=== PATIENT | female | born 1955 | race Hispanic/Latino ===

== ENCOUNTER 2017-03-04 14:37 | Emergency (ER) | payer SELFPAY ==
[2017-03-04 14:42] VITALS: TEMP 97.9; O2SAT 100
--- NOTE | 2017-03-04 15:22 | C.PDOC ---
History Of Present Illness 61 year old female with a history of schizophrenia was brought to the ED by EMS for evaluation of bizzare behavior. Patient was malingering and sitting naked on a front stoop. She denies any physical complaints, suicidal or homicidal ideations. Time Seen by Provider: 03/04/17 15:07 Chief Complaint (Nursing): Psychiatric Evaluation History Per: Patient, EMS History/Exam Limitations: no limitations Suicide/Self Injury Attempted (Context): None Involuntary Hold By: None Recent travel outside of the [place]: No Additional History Per: Prior Records Past Medical History Reviewed: Historical Data, Nursing Documentation, Vital Signs Vital Signs: Last Vital Signs Temp 97.9 F 03/04/17 14:38 Pulse 80 03/04/17 18:44 Resp 18 03/04/17 18:44 BP 105/68 03/04/17 18:44 Pulse Ox 100 03/04/17 22:02 Family History: States: Unknown Family Hx - Social History Hx Alcohol Use: (UNABLE TO OBTAIN) Hx Substance Use: (UNABLE TO OBTAIN) - Immunization History Hx Tetanus Toxoid Vaccination: (UNABLE TO OBTAIN) Review Of Systems Constitutional: Negative for: Fever, Chills Cardiovascular: Negative for: Chest Pain Respiratory: Negative for: Shortness of Breath Gastrointestinal: Negative for: Nausea, Vomiting, Abdominal Pain Physical Exam - Physical Exam Appears: Non-toxic, Other (Patient appears chronically mentally ill ) Skin: Warm, Dry Head: Atraumatic Eye(s): bilateral: Normal Inspection, PERRL, EOMI Oral Mucosa: Moist Neck: Supple Chest: Symmetrical, No Deformity Cardiovascular: Rhythm Regular Respiratory: Normal Breath Sounds, No Wheezing Gastrointestinal/Abdominal: Soft, No Tenderness, No Distention, No Guarding, No Rebound Neurological/Psych: Oriented x3 ED Course And Treatment - Laboratory Results Result Diagrams: 03/04/17 16:25 03/04/17 16:25 Lab Interpretation: Normal (tox/etoh neg) O2 Sat by Pulse Oximetry: 100 (room air ) Reevaluation Time: 18:25 Reassessment Condition: Improved - Physician Consult Information Outcome Of Conversation: [id number], [id number]: d/w Crisis, ok to d/c with f/u @ [facility]- where pt usually goes. No acute issues today Medical Decision Making Medical Decision Making: baseline schizophrenia Disposition Doctor Will See Patient In The: Office Counseled Patient/Family Regarding: Studies Performed, Diagnosis - Disposition Referrals: [facility] [Outside] [facility] [Outside] [facility] [Outside] [place] [facility] [Outside] [facility] [Non-Staff] - Disposition: HOME/ ROUTINE Disposition Time: 18:26 Condition: GOOD Additional Instructions: please follow-up at the [facility] psych services as usual Instructions: Schizophrenia (ED) Forms: ustyme (Haitian) - Clinical Impression Clinical Impression: Schizophrenia - Scribe Statement The provider has reviewed the documentation as recorded by the Scribe Aranza Crook All medical record entries made by the Scribe were at my direction and personally dictated by me. I have reviewed the chart and agree that the record accurately reflects my personal performance of the history, physical exam, medical decision making, and the department course for this patient. I have also personally directed, reviewed, and agree with the discharge instructions and disposition.
[2017-03-04 16:28] LABS: BASO % 0.3 % (0.0-2.0); EOS # 0.3 K/uL (0.0-0.7); EOS % 5.7 % (0.0-4.0); HEMOGLOBIN 12.1 g/dL (11.0-16.0); LYMPH % 32.7 % (20.0-40.0); MEAN CELL VOLUME 92.2 fL (81.0-99.0); MEAN CORPUSCULAR HEMOGLOBIN 30.8 pg (27.0-31.0); MEAN CORPUSCULAR HGB CONC 33.4 g/dL (33.0-37.0); MONO # 0.5 K/uL (0.0-0.8); MONO % 7.7 % (0.0-10.0); NEUT # 3.2 K/uL (1.8-7.0); NEUT % 53.6 % (50.0-75.0); RBC 3.95 Mil/uL (3.80-5.20)
[2017-03-04 16:35] LABS: ALBUMIN 3.2 g/dL (3.5-5.0)
[2017-03-04 16:38] LABS: GFR AFRICAN-AMERICAN > 60; GFR NON-AFRICAN AMERICAN > 60
[2017-03-04 16:39] LABS: ALB/GLOB RATIO 1.3 (1.0-2.1); ALT/SGPT 26 U/L (9-52); AST/SGOT 22 U/L (14-36); BLOOD UREA NITROGEN 11 mg/dL (7-17); CALCIUM 8.5 mg/dl (8.6-10.4)
[2017-03-04 16:59] LABS: SQUAMOUS EPITHIAL 3 /hpf (0-5); URINE BACTERIA OCC (<OCC); URINE BILIRUBIN NEGATIVE (NEGATIVE); URINE BLOOD 2+ (NEGATIVE); URINE CLARITY Hazy (Clear); URINE COLOR Yellow (YELLOW); URINE GLUCOSE (UA) NORMAL (Normal); URINE LEUKOCYTE ESTERASE 3+ Leu/uL (Negative); URINE NITRATE NEGATIVE (NEGATIVE); URINE PROTEIN NEGATIVE (NEGATIVE); URINE UROBILINOGEN NORMAL mg/dL (0.2-1.0)
[2017-03-04 17:14] LABS: BARBITURATES, UR NEGATIVE (NEGATIVE); BENZODIAZEPINES, UR NEGATIVE (NEGATIVE)
[2017-03-04 17:18] LABS: OPIATES, UR NEGATIVE (NEGATIVE); PHENCYCLIDINE, UR NEGATIVE (NEGATIVE)
[2017-03-04 18:45] VITALS: BP 105/68; PULSE 80; RESP 18
== END 2017-03-04 18:44 | disposition home or self-care (01) ==
LOC: EDBD 14:37 → C.ER 14:37
DX: F20.9 Schizophrenia, unspecified (principal)
CPT/HCPCS: 80053; 81001; 82948; 85025; 99283; G0480